=== PATIENT | male | born 1965 | race Caucasian/White ===

== ENCOUNTER → 2016-12-01 | Outpatient (REF) | payer BC | LOC: M LAB REF 12:57 | PROVIDERS: ATTEND Internal Medicine | DX: R73.9 Hyperglycemia, unspecified (principal); E78.1 Pure hyperglyceridemia ==

== ENCOUNTER → 2017-11-17 | Outpatient (REF) | payer BC ==
[2017-11-19 08:11] LABS: LDL DIRECT 79 mg/dL (0-99)
== END ==
LOC: M LAB REF 17:17
DX: E78.1 Pure hyperglyceridemia (principal)
CPT/HCPCS: 83721

== ENCOUNTER 2017-11-27 06:35 | Day surgery (SDC) | payer BC ==
[2017-11-27] MEDS ORDERED: PROPOFOL 200 MG/20 ML VIAL As Ordered ×3 (07:05→08:11)
[2017-11-27] MEDS ORDERED: LIDOCAINE 2% INJ 100 MG/5 ML SDV (FOR ANES.) As Ordered (07:05)
[2017-11-27] MEDS: NS 500 ML IV (07:46)
== END 2017-11-27 09:08 | disposition home or self-care (01) ==
LOC: M OPP 06:35
DX: Z12.11 Encounter for screening for malignant neoplasm of colon (principal); K57.30 Diverticulosis of large intestine without perforation or abscess without bleeding; K64.8 Other hemorrhoids; D12.5 Benign neoplasm of sigmoid colon; D12.2 Benign neoplasm of ascending colon; Z86.010 Personal history of colon polyps; E78.00 Pure hypercholesterolemia, unspecified; K21.9 Gastro-esophageal reflux disease without esophagitis; G47.33 Obstructive sleep apnea (adult) (pediatric); Z79.82 Long term (current) use of aspirin; Z79.899 Other long term (current) drug therapy
CPT/HCPCS: 45385

== ENCOUNTER → 2018-03-23 | Outpatient (REF) | payer BC ==
[2018-03-24 10:32] LABS: LDL DIRECT 68 mg/dL (0-99)
== END ==
LOC: M LAB REF 13:33
DX: E78.1 Pure hyperglyceridemia (principal)

== ENCOUNTER → 2018-06-23 | Outpatient (REF) | payer BC ==
[2018-06-24 08:36] LABS: LDL DIRECT 68 mg/dL (0-99)
== END ==
LOC: M LAB REF 13:19
DX: E78.1 Pure hyperglyceridemia (principal)
CPT/HCPCS: 83721

== ENCOUNTER → 2018-12-27 | Outpatient (REF) | payer BC ==
[~2018-12-27] MED LIST: ASPI81TA26 PO; LIPI10TA PO; MULT1TAB10 PO; OMEP20CA3 PO
[2018-12-28 08:25] LABS: LDL DIRECT 79 mg/dL (0-99)
== END ==
LOC: M LAB REF 12:02
PROVIDERS: ATTEND Internal Medicine
DX: E78.00 Pure hypercholesterolemia, unspecified (principal)

== ENCOUNTER → 2019-02-21 | Outpatient (REF) | payer BC ==
[2019-02-21 13:53] LABS: INR 0.9; PROTHROMBIN TIME 12.2 SECONDS (12.1-14.4)
== END ==
LOC: M LAB REF 12:35
PROVIDERS: ATTEND Internal Medicine
DX: S46.012D Strain of muscle(s) and tendon(s) of the rotator cuff of left shoulder, subsequent encounter (principal); W18.30XD Fall on same level, unspecified, subsequent encounter; Y92.009 Unspecified place in unspecified non-institutional (private) residence as the place of occurrence of the external cause

== ENCOUNTER → 2019-02-21 | Outpatient (REF) | payer BC ==
[2019-02-24 00:07] LABS: EBV AB TO NUCLEAR ANTIGEN >600.0 U/mL (0.0-17.9); EBV VIRAL CAPSID AG IgG >600.0 U/mL (0.0-17.9); EBV VIRAL CAPSID AG IgM <36.0 U/mL (0.0-35.9); Lyme Disease IgG/IgM Antibodie <0.91 ISR (0.00-0.90); Lyme Disease IgM Ab Quantitati <0.80 index (0.00-0.79)
== END ==
LOC: M LAB REF 17:06
PROVIDERS: ATTEND Internal Medicine
DX: R53.81 Other malaise (principal)

== ENCOUNTER → 2019-05-24 | Outpatient (REF) | payer BC ==
[~2019-05-24] MED LIST changes: -OMEP20CA3 PO; +OMEP20CA4 PO
== END ==
LOC: M LAB REF 16:35
PROVIDERS: ATTEND Internal Medicine
DX: K57.80 Diverticulitis of intestine, part unspecified, with perforation and abscess without bleeding (principal)

== ENCOUNTER → 2019-09-27 | Outpatient (REF) | payer BC ==
[~2019-09-27] MED LIST changes: +OMEP1CAP73 PO; -OMEP20CA4 PO
[2019-09-28 08:21] LABS: LDL DIRECT 50 mg/dL (0-99)
== END ==
LOC: M LAB REF 13:02
PROVIDERS: ATTEND Internal Medicine
DX: E78.1 Pure hyperglyceridemia (principal)

== ENCOUNTER → 2021-04-15 | Outpatient (REF) ==
--- NOTE | 2021-04-15 12:38 | REP ---
INDICATION: ARTHRITIS. COMPARISON: None. TECHNIQUE: Four views the right hand were obtained. FINDINGS: There is no evidence of fracture or dislocation. 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 There is an old ununited avulsion fracture of the head of the 2nd metacarpal. There are no significant joint space abnormalities. There are no soft tissue abnormalities. IMPRESSION: 1. 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 2. There is no evidence of acute injury or significant arthropathy. <Electronically signed by Levar Ballard > 04/15/21 1703
== END ==
LOC: M PLAIMG 11:02
PROVIDERS: ATTEND Internal Medicine
DX: M19.90 Unspecified osteoarthritis, unspecified site (principal)

== ENCOUNTER → 2021-04-25 | Outpatient (CLI) | payer BC ==
--- NOTE | 2021-04-25 09:40 | REP ---
INDICATION: CERVICALGIA. COMPARISON: None. TECHNIQUE: There are 7 views including flexion and extension views. FINDINGS: On the lateral views C1 through C6 are visualized. C7 and T1 are obscured by the shoulders. Vertebral body heights and alignment are normal. There is mild degenerative disc disease at multiple levels from C3 through C6. The prevertebral soft tissues are normal. The facets are normally aligned. There is no listhesis on flexion or extension. On the oblique views there is minimal uncinate spurring resulting in mild foraminal encroachment at the left C6-7 foramina. The odontoid view is unremarkable. IMPRESSION: Mild intervertebral degenerative disc disease throughout the cervical spine. There is no listhesis, particularly on flexion and extension views. Mild foraminal encroachment at the C6-7 left foramina from the minimal uncinate spurring <Electronically signed by Omid De Santiago > 04/25/21 0936
== END ==
LOC: M WUC 08:37
PROVIDERS: ATTEND Internal Medicine
DX: M50.321 Other cervical disc degeneration at C4-C5 level (principal); M50.322 Other cervical disc degeneration at C5-C6 level

== ENCOUNTER → 2021-11-06 | Outpatient (REF) | payer BC ==
[2021-11-08 08:09] LABS: LDL DIRECT 70 mg/dL (0-99)
== END ==
LOC: M LAB REF 16:17
PROVIDERS: ATTEND Internal Medicine
DX: E78.00 Pure hypercholesterolemia, unspecified (principal); E78.1 Pure hyperglyceridemia

== ENCOUNTER → 2021-12-25 | Outpatient (CLI) | payer BC | LOC: M WUC 09:45 | PROVIDERS: ATTEND Physician Assistant Medical | DX: M25.572 Pain in left ankle and joints of left foot (principal) ==

== ENCOUNTER → 2022-02-03 | Outpatient (REF) | payer BC ==
[2022-02-05 08:10] LABS: LDL DIRECT 47 mg/dL (0-99)
== END ==
LOC: M LAB REF 16:18
PROVIDERS: ATTEND Internal Medicine
DX: E78.00 Pure hypercholesterolemia, unspecified (principal)

== ENCOUNTER → 2022-08-18 | Outpatient (CLI) | payer BC, OTHER ==
[~2022-08-18] MED LIST changes: +ROSU40TA4 PO
== END ==
LOC: M LABSMTC 09:22
PROVIDERS: ATTEND Anesthesiology
DX: Z01.812 Encounter for preprocedural laboratory examination (principal); Z20.822 Contact with and (suspected) exposure to COVID-19

== ENCOUNTER 2022-08-21 06:26 | Day surgery (SDC) | payer OTHER ==
[~2022-08-21] VITALS: Ht 188 cm; Wt 134.7 kg
[~2022-08-21 06:26] MED LIST changes: +NS 1,000 ML IV ONE
[2022-08-21] MEDS ORDERED: SIMETHICONE 40MG/0.6ML DROPS 30ML As Ordered ONE (07:06)
[2022-08-21] MEDS ORDERED: propofoL 200 MG/20 ML VIAL As Ordered ONE (07:06)
[2022-08-21 08:09] VITALS: BP 136/83
== END 2022-08-21 08:16 | disposition home or self-care (01) ==
LOC: M OPP 06:26
PROVIDERS: ATTEND Internal Medicine Gastroenterology
DX: Z12.11 Encounter for screening for malignant neoplasm of colon (principal); Z86.010 Personal history of colon polyps; D12.8 Benign neoplasm of rectum; K57.30 Diverticulosis of large intestine without perforation or abscess without bleeding; G47.30 Sleep apnea, unspecified; M19.90 Unspecified osteoarthritis, unspecified site; Z79.02 Long term (current) use of antithrombotics/antiplatelets; Z79.82 Long term (current) use of aspirin; Z79.899 Other long term (current) drug therapy; Z99.89 Dependence on other enabling machines and devices

== ENCOUNTER → 2023-01-07 | Outpatient (CLI) | payer BC, OTHER ==
[~2023-01-07] MED LIST changes: -NS 1,000 ML IV ONE
== END ==
LOC: M WUC 13:47
PROVIDERS: ATTEND Internal Medicine
DX: R05.9 Cough, unspecified (principal)

== ENCOUNTER → 2023-02-24 | Outpatient (CLI) | payer BC | LOC: M PLAIMG 11:07 | PROVIDERS: ATTEND Internal Medicine | DX: R05.9 Cough, unspecified (principal) ==

== ENCOUNTER → 2023-06-02 | Outpatient (CLI) | payer OTHER ==
[~2023-06-02] MED LIST changes: +ISOVUE-370 76% 100ML VIAL As Ordered ONE
== END ==
LOC: M RAD 15:16
PROVIDERS: ATTEND Internal Medicine
DX: N20.0 Calculus of kidney (principal)
CPT/HCPCS: 74178; Q9967

== ENCOUNTER → 2024-02-24 | Outpatient (REF) | payer BC ==
[~2024-02-24] MED LIST changes: -ISOVUE-370 76% 100ML VIAL As Ordered ONE; -ROSU40TA4 PO; +ROSU40TA63 PO
== END ==
LOC: M LAB REF 11:29
PROVIDERS: ATTEND Internal Medicine
DX: M10.9 Gout, unspecified (principal)

== ENCOUNTER → 2025-05-14 | Outpatient (CLI) | payer BC ==
[~2025-05-14] MED LIST changes: -ROSU40TA63 PO; +ROSU40TA81 PO
[2025-05-17 10:02] LABS: PSA % FREE 28 % (calc) (>25); PSA FREE 0.5 ng/mL; PSA TOTAL 1.8 ng/mL (< OR = 4.0)
[2025-05-17 20:31] LABS: LYME TOTAL ANTIBODY CIA <= 0.90 Index (<=0.90)
== END ==
LOC: M LAB 13:57
PROVIDERS: ATTEND Physician Assistant
DX: R30.0 Dysuria (principal); R53.83 Other fatigue